=== PATIENT | male | born 1965 | race Caucasian/White ===

== ENCOUNTER → 2016-12-18 | Day surgery (SDC) | payer OTHER ==
[2016-12-12 13:13] VITALS: Ht 190.5 cm; Wt 92.3 kg
[~2016-12-18] VITALS: Ht 190.5 cm; Wt 92.3 kg
[~2016-12-18] MED LIST: FLUT0.15 NAE; FOLI1TAB7 PO; FRS/40 PO; MULT-506 PO; POTA1TAB97 PO; PRLSR20 PO; SPIR50TA2 PO; TRAZ50TA35 PO; VITAMIN B1 PO
== END | disposition home or self-care (01) ==
LOC: EDSTATUS 12:00 → C.PAT 13:38
PROVIDERS: ATTEND Ophthalmology
DX: H26.9 Unspecified cataract (principal)